=== PATIENT | male | born 1985 ===

== ENCOUNTER → 2017-03-10 11:45 | Outpatient (CLI) | payer OTHER | END | disposition home or self-care (01) | LOC: LAB 11:45 | DX: Z00.00 Encounter for general adult medical examination without abnormal findings (principal); Z80.9 Family history of malignant neoplasm, unspecified; Z12.9 Encounter for screening for malignant neoplasm, site unspecified; Z76.0 Encounter for issue of repeat prescription ==

== ENCOUNTER → 2017-03-10 | Outpatient (CLI) | payer OTHER ==
[~2017-03-10] VITALS: Ht 152.4 cm; Wt 79.4 kg
== END | disposition home or self-care (01) ==
LOC: PPHC 10:52
DX: Z00.00 Encounter for general adult medical examination without abnormal findings (principal)

== ENCOUNTER 2017-04-17 19:29 | Outpatient (CLI) | payer OTHER | END 2017-04-17 19:39 | disposition home or self-care (01) | LOC: LAB 19:29 | DX: J10.1 Influenza due to other identified influenza virus with other respiratory manifestations (principal) ==

== ENCOUNTER → 2017-04-17 | Outpatient (CLI) | payer OTHER ==
[~2017-04-17] VITALS: Ht 152.4 cm; Wt 74.8 kg
== END | disposition home or self-care (01) ==
LOC: PPHC 18:14
DX: J06.9 Acute upper respiratory infection, unspecified (principal); Z01.89 Encounter for other specified special examinations

== ENCOUNTER 2018-05-08 19:57 | Outpatient (CLI) | payer OTHER | END 2018-05-08 20:19 | disposition home or self-care (01) | LOC: LAB 19:57 | DX: E78.2 Mixed hyperlipidemia (principal); D51.3 Other dietary vitamin B12 deficiency anemia; D50.8 Other iron deficiency anemias; I10 Essential (primary) hypertension; D51.1 Vitamin B12 deficiency anemia due to selective vitamin B12 malabsorption with proteinuria; D51.0 Vitamin B12 deficiency anemia due to intrinsic factor deficiency; E03.8 Other specified hypothyroidism; Z11.3 Encounter for screening for infections with a predominantly sexual mode of transmission; A53.9 Syphilis, unspecified; A74.89 Other chlamydial diseases; A54.89 Other gonococcal infections ==

== ENCOUNTER 2018-06-18 20:19 | Outpatient (CLI) | payer OTHER | END 2018-06-18 20:33 | disposition home or self-care (01) | LOC: LAB 20:19 | DX: E78.2 Mixed hyperlipidemia (principal); D51.3 Other dietary vitamin B12 deficiency anemia; D55.0 Anemia due to glucose-6-phosphate dehydrogenase [G6PD] deficiency ==

== ENCOUNTER 2018-10-29 18:33 | Outpatient (CLI) | payer OTHER | END 2018-10-29 19:12 | disposition home or self-care (01) | LOC: LAB 18:33 | DX: E78.2 Mixed hyperlipidemia (principal); D51.3 Other dietary vitamin B12 deficiency anemia; D51.1 Vitamin B12 deficiency anemia due to selective vitamin B12 malabsorption with proteinuria; B20 Human immunodeficiency virus [HIV] disease; B19.9 Unspecified viral hepatitis without hepatic coma; A74.89 Other chlamydial diseases; B00.89 Other herpesviral infection; Z11.4 Encounter for screening for human immunodeficiency virus [HIV] ==